=== PATIENT | female | born 1985 | race Caucasian/White ===

== ENCOUNTER → 2022-11-09 | Outpatient (REF) | payer OTHER | LOC: M LAB REF 16:40 | PROVIDERS: ATTEND Internal Medicine | DX: J02.9 Acute pharyngitis, unspecified (principal) ==

== ENCOUNTER → 2022-12-29 | Outpatient (CLI) | payer OTHER ==
[~2022-12-29] MED LIST: E-Z-GAS II EFFERVESCENT PACKET (SODIUM BICARB./CITRIC ACID/SIMETHICONE) As Ordered ONE; E-Z-HD 98% w/w 340GM SUSP BTL As Ordered ONE; E-Z-PAQUE 96% w/w SUSP 176GM BTL As Ordered ONE
== END ==
LOC: M RAD 08:50
PROVIDERS: ATTEND Internal Medicine
DX: R12 Heartburn (principal)

== ENCOUNTER → 2023-05-12 | Outpatient (REF) | payer OTHER | LOC: M LAB REF 10:25 | PROVIDERS: ATTEND Internal Medicine | DX: R19.7 Diarrhea, unspecified (principal) ==

== ENCOUNTER → 2023-05-24 | Outpatient (REF) | payer OTHER | LOC: M LAB REF 15:51 | PROVIDERS: ATTEND Internal Medicine | DX: R19.7 Diarrhea, unspecified (principal) ==

== ENCOUNTER → 2023-06-15 | Outpatient (REF) | payer OTHER ==
[2023-06-15 16:29] LABS: CLOSTRIDIUM DIFFICILE PCR POSITIVE (NEGATIVE)
== END ==
LOC: M LAB REF 15:24
PROVIDERS: ATTEND Internal Medicine
DX: R19.7 Diarrhea, unspecified (principal)

== ENCOUNTER → 2023-10-13 | Outpatient (REF) | payer OTHER | LOC: M LAB REF 17:57 | PROVIDERS: ATTEND Internal Medicine Gastroenterology | DX: A04.72 Enterocolitis due to Clostridium difficile, not specified as recurrent (principal); R19.7 Diarrhea, unspecified ==

== ENCOUNTER → 2023-10-31 | Outpatient (CLI) | payer OTHER ==
[2023-10-31 13:15] LABS: IMMUNOGLOBULIN A 218.7 MG/DL (40-350)
[2023-10-31 13:17] LABS: IMMUNOGLOBULIN G 913 MG/DL (650-1600)
[2023-10-31 13:46] LABS: IMMUNOGLOBULIN E 10.3 IU/ML (0-378)
[2023-10-31 14:04] LABS: HEPATITIS B SURFACE ANTIBODY POSITIVE (POSITIVE)
[2023-10-31 14:29] LABS: HIV 1&2 SCREEN NEGATIVE (NEGATIVE)
[2023-10-31 14:37] LABS: HEPATITIS C VIRUS ABY INDEX < 0.02 INDEX (<0.8)
[2023-11-02 15:11] LABS: HEPATITIS B CORE ANTIBODY IGG Negative (Negative); IgG SERUM (part of Subclasses) 911 mg/dL (586-1602); IgG Subclass 1 505 mg/dL (248-810); IgG Subclass 2 205 mg/dL (130-555); IgG Subclass 3 27 mg/dL (15-102); IgG Subclass 4 10 mg/dL (2-96)
== END ==
LOC: M PLALAB 10:32
PROVIDERS: ATTEND Internal Medicine Infectious Disease
DX: J32.9 Chronic sinusitis, unspecified (principal); B02.9 Zoster without complications; Z11.59 Encounter for screening for other viral diseases

== ENCOUNTER 2023-11-08 14:37 | Outpatient (CLI) | payer OTHER ==
[~2023-11-08] VITALS: Ht 165.1 cm; Wt 56.8 kg
[2023-11-08 15:00] VITALS: BP 136/76; O2SAT 99
[2023-11-08] MEDS ORDERED: WELLTAB38 PO (15:34)
[2023-11-08] MEDS ORDERED: MONT-5 PO (15:34)
[2023-11-08] MEDS ORDERED: FLON1SPR NARES (15:34)
[2023-11-08] MEDS ORDERED: REST0.05 OD (15:34)
[2023-11-08] MEDS ORDERED: VRAY3CAP PO (15:34)
[2023-11-08] MEDS ORDERED: LOW-1TAB2 PO (15:34)
[2023-11-08] MEDS ORDERED: ATOG60TA PO (15:34)
[2023-11-08] MEDS: BEZLOTOXUMAB in NS 100 ML OVER 1 HR IV ONE (15:44)
[2023-11-08 16:50] VITALS: BP 125/83; O2SAT 100
== END 2023-11-08 16:50 | disposition home or self-care (01) ==
LOC: M INFU 14:37
PROVIDERS: ATTEND Internal Medicine Infectious Disease
DX: A04.71 Enterocolitis due to Clostridium difficile, recurrent (principal); Z88.0 Allergy status to penicillin; Z88.8 Allergy status to other drugs, medicaments and biological substances
CPT/HCPCS: 96365; J0565

== ENCOUNTER → 2024-01-20 | Outpatient (CLI) | payer OTHER ==
[~2024-01-20] MED LIST changes: +ATOG60TA PO; -E-Z-GAS II EFFERVESCENT PACKET (SODIUM BICARB./CITRIC ACID/SIMETHICONE) As Ordered ONE; -E-Z-HD 98% w/w 340GM SUSP BTL As Ordered ONE; -E-Z-PAQUE 96% w/w SUSP 176GM BTL As Ordered ONE; +FLON1SPR NARES; +LOW-1TAB2 PO; +MONT-5 PO; +REST0.05 OD; +VRAY3CAP PO; +WELLTAB38 PO
[2024-01-20 14:06] LABS: HEMATOCRIT 42.1 % (36.0-47.0); HEMOGLOBIN 13.9 g/dl (12.0-15.5); MEAN CORPUSCULAR HEMOGLOBIN 31.7 pg (27.0-33.0); MEAN CORPUSCULAR VOLUME 96.1 fl (80.0-96.0); PLATELET COUNT, AUTOMATED 354 10^3/uL (150-450); RED BLOOD COUNT 4.38 10^6/uL (4.00-5.40); WHITE BLOOD COUNT 8.2 10^3/uL (4.0-10.0)
[2024-01-20 14:18] LABS: ERYTHROCYTE SEDIMENTATION RATE 19 mm/hr (0-20)
[2024-01-20 14:29] LABS: C REACTIVE PROTEIN QUANTITATIV < 0.40 MG/DL (<1.0)
[2024-01-20 14:30] LABS: ALBUMIN 4.1 G/DL (3.2-5.2); ALKALINE PHOSPHATASE 90 U/L (46-116); ALT/SGPT 18 U/L (7.0-40); AST/SGOT 12 U/L (<34); BILIRUBIN,TOTAL 0.4 MG/DL (0.3-1.2); BLOOD UREA NITROGEN 11 MG/DL (9-23); CARBON DIOXIDE LEVEL 29 MMOL/L (20-31); CHLORIDE LEVEL 104 MMOL/L (98-107); CREATININE FOR GFR 0.62 MG/DL (0.55-1.30); GLOMERULAR FILTRATION RATE > 60.0 (>60); GLUCOSE, FASTING 69 MG/DL (60-100); IRON (FE) 118 UG/DL (50-170); POTASSIUM SERUM 4.4 MMOL/L (3.5-5.1); SODIUM LEVEL 138 MMOL/L (136-145); THYROXINE (T4) 9.3 UG/DL (4.5-10.9)
[2024-01-20 14:31] LABS: FREE THYROXINE INDEX 2.3 % (1.3-4.8); T UPTAKE 24.7 % (22.5-37.0); THYROID STIMULATING HORMONE 0.672 uIU/ML (0.55-4.78)
[2024-01-20 14:32] LABS: TOTAL 25(OH) VITAMIN D 27.3 NG/ML (20.0-100.0)
[2024-01-20 14:34] LABS: VITAMIN B12 LEVEL > 2000 PG/ML (211-911)
[2024-01-23 16:07] LABS: ANA SCREEN, IFA NEGATIVE (NEGATIVE)
== END ==
LOC: M PLALAB 11:44
PROVIDERS: ATTEND Nurse Practitioner Family
DX: L60.9 Nail disorder, unspecified (principal)